=== PATIENT | male | born 1975 | race African-American/Black ===

== ENCOUNTER 2017-08-08 09:25 | Emergency (ER) | payer MEDICARE, MEDICAID ==
[~2017-08-08] VITALS: Ht 177.8 cm; Wt 70.0 kg
[~2017-08-08 09:25] MED LIST: DIVALPROEX; NAPROXEN; OLANZAPINE; QUETIAPINE; THIORIDAZINE
[2017-08-08 10:00] VITALS: BP 112/84
[2017-08-08] MEDS ORDERED: OXYMETAZOLINE HCL NASAL SPRAY 15ML BOTHNSTRLS SCH ×2 (10:30→21:00)
== END 2017-08-08 10:53 | disposition home or self-care (01) ==
LOC: ER 09:53
DX: R04.0 Epistaxis (principal); F20.9 Schizophrenia, unspecified
CPT/HCPCS: 99283

== ENCOUNTER 2019-07-30 14:40 | Inpatient (IN) | payer MEDICARE, MEDICAID ==
[~2019-07-30] VITALS: Ht 172.7 cm; Wt 82.6 kg
[2019-07-30] VITALS (21 sets, daily range): BP systolic 78–121; BP diastolic 45–69
[~2019-07-30 14:40] MED LIST changes: -DIVALPROEX; +DIVALPROEX MT; -NAPROXEN; +NAPROXEN MT; -OLANZAPINE; +OLANZAPINE MT; -QUETIAPINE; +QUETIAPINE MT
[2019-07-30] MEDS ORDERED: DEXTROSE 50% WATER 50ML SYRINGE IV ONE ×2 (14:51→15:00)
[2019-07-30] MEDS ORDERED: NALOXONE HCL 1 MG/ML 2ML VIAL ONE (14:54)
[2019-07-30] MEDS ORDERED: ETOMIDATE 2MG/ML 10ML VIAL IV ONE (15:00)
[2019-07-30] MEDS ORDERED: SODIUM CHLORIDE 0.9% 1000ML BAG (SEPSIS BOLUS) IV ONE (15:00)
[2019-07-30] MEDS ORDERED: NOREPINEPHRINE 4 MG in DEXT 5% WATER 246 ML IV ONE (15:00)
[2019-07-30] MEDS ORDERED: PIPERACILLIN/TAZ 3.375G PREMIX 50 ML IV ONE (15:00)
[2019-07-30] MEDS ORDERED: NALOXONE HCL 1 MG/ML 2ML VIAL IV ONE (15:00)
[2019-07-30] MEDS ORDERED: VANCOMYCIN 1 G PREMIX 200 ML IV ONE (15:00)
[2019-07-30] MEDS ORDERED: PROPOFOL 10MG/ML 100ML 100 ML IV ONE (15:00)
[2019-07-30] MEDS ORDERED: SUCCINYLCHOLINE CHLORIDE 200MG/10ML IV ONE (15:00)
[2019-07-30] MEDS ORDERED: NOREPINEPHRINE 4MG/250ML PMX 250 ML IV ONE (15:09)
[2019-07-30] MEDS ORDERED: LORAZEPAM 2MG/ML CPJ ONE (15:29)
[2019-07-30 15:38] LABS: CHLORIDE 111 mEq/L (98-107)
[2019-07-30 15:40] LABS: INR 1.8; PARTIAL THROMBOPLASTIN TIME 49.4 sec (23.4-31.0); PROTHROMBIN TIME 18.4 sec (9.6-11.0)
[2019-07-30 15:43] LABS: ETHANOL BLOOD < 10 mg/dL
[2019-07-30] MEDS ORDERED: LORAZEPAM 2MG/ML CPJ IV ONE (15:45)
[2019-07-30 15:48] LABS: HEMATOCRIT. 35.4 % (42.0-52.0); HEMOGLOBIN. 10.8 g/dL (14.0-18.0); MEAN CORPUSCULAR HEMOGLOBIN 26.1 pg (28.0-32.0); MEAN CORPUSCULAR VOLUME 85.8 fL (80.0-94.0); PLATELET 106 x1000/uL (130-400); RED BLOOD CELL COUNT 4.12 mill/uL (4.7-6.1); RED CELL DISTRIBUTION WIDTH 25.4 % (11.6-14.6)
[2019-07-30 15:51] LABS: BG BASE EXCESS -20.4 mmol/L (-2.0-2.0); BG CARBOXYHEMOGLOBIN 0.3 % (0.5-1.5); BG DEOXYHEMOGLOBIN 0.6 % (0.0-5.0); BG FRACTION INSPIRED OXYGEN 100; BG HCO3 ACT 9.1 mmol/L (22.0-26.0); BG OXYGEN SATURATION 99.4 % (92.0-98.5); BG OXYHEMOGLOBIN 98.1 % (94.0-97.0); BG PCO2 35.3 mmHg (35.0-45.0); BG PH 7.029 (7.350-7.450); BG PO2 463.8 mmHg (75.0-100.0); BG SAMPLE SITE RIGHT BRACHIAL; BG TIDAL VOLUME(mL) 500 mL; BG TOTAL HEMOGLOBIN 9.4 g/dL (12.0-18.0); BG VENT MODE VENT - A/C; BG VENT RATE 12 set
[2019-07-30] MEDS ORDERED: DOPAMINE 400MG/250ML PREMIX 250 ML IV ONE ×2 (16:00→18:00)
[2019-07-30 16:05] LABS: CLARITY URINE CLOUDY (CLEAR); COLOR URINE ORANGE (YELLOW); KETONES URINE NEGATIVE (NEGATIVE); LEUKOCYTE ESTERASE URINE 2+ (NEGATIVE); NITRITE URINE POSITIVE (NEGATIVE); OCCULT BLOOD URINE 1+ (NEGATIVE); PROTEIN URINE TRACE (NEGATIVE); SPECIFIC GRAVITY URINE 1.022 (1.005-1.030)
[2019-07-30] MEDS ORDERED: SODIUM POLYSTYRENE SULFONATE 15 G/60 ML BOT NG ONE (16:15)
[2019-07-30] MEDS ORDERED: ALBUTEROL (0.083%) 2.5MG/3ML NEB HHN ONE (16:15)
[2019-07-30] MEDS ORDERED: SODIUM BICARBONATE 8.4% 1 MEQ/ML 50ML SYR IV ONE (16:15)
[2019-07-30] MEDS ORDERED: LACTULOSE 20G/30ML UDC NG ONE (16:15)
[2019-07-30 16:27] LABS: *AMPHETAMINES SCREEN URINE NEGATIVE (NEGATIVE); *BARBITURATES SCREEN URINE NEGATIVE (NEGATIVE); *BENZODIAZEPINES SCREEN URINE NEGATIVE (NEGATIVE)
[2019-07-30 16:28] LABS: *COCAINE SCREEN URINE NEGATIVE (NEGATIVE); CANNABINOID URINE SCREEN NEGATIVE (NEGATIVE); METHADONE URINE SCREEN NEGATIVE (NEGATIVE); OPIATES URINE SCREEN NEGATIVE (NEGATIVE); PHENCYCLIDINE URINE SCREEN NEGATIVE (NEGATIVE)
[2019-07-30] MEDS ORDERED: NOREPINEPHRINE 4MG/250ML PMX 250 ML IV PRN (17:00)
[2019-07-30] MEDS ORDERED: SODIUM BICARBONATE 5MEQ SYR 150 MEQ in DEXTROSE 5% WATER 1,000 ML IV ONE (17:15)
[2019-07-30] MEDS ORDERED: SODIUM BICARBONATE 8.4% 1 MEQ/ML 50ML SYR IV NR ×2 (17:15→22:00)
[2019-07-30] MEDS ORDERED: DOBUTAMINE 250MG PREMIX 250 ML IV ONE (17:15)
[2019-07-30 17:17] LABS: PLATELET ESTIMATE DECREASED
[2019-07-30] MEDS ORDERED: DOBUTAMINE 250MG PREMIX 250 ML IV PRN (17:30)
[2019-07-30] MEDS: SODIUM BICARBONATE 150 MEQ in DEXTROSE 5% WATER 1,000 ML IV SCH (17:46)
[2019-07-30] MEDS ORDERED: MIDAZOLAM HCL 2 MG/2 ML VIAL IV ONE (18:00)
[2019-07-30] MEDS ORDERED: MIDAZOLAM HCL 50 MG in DEXTROSE 5% WATER 40 ML IV ONE (18:00)
[2019-07-30] MEDS ORDERED: ACETYLCYSTEINE 200MG/ML 20% VIAL 30ML (INJ) IV ONE ×2 (18:15→19:30)
[2019-07-30] MEDS ORDERED: PHENYLEPHRINE 40 MG in DEXT 5% WATER 246 ML IV PRN ×2 (19:15→19:30)
[2019-07-30] MEDS ORDERED: NOREPINEPHRINE 32 MG in DEXT 5% WATER 468 ML IV PRN (19:30)
[2019-07-30] MEDS ORDERED: ONDANSETRON HCL 4MG/2ML INJ IV PRN (19:30)
[2019-07-30] MEDS ORDERED: PIPERACILLIN/TAZ 3.375G PREMIX 50 ML IV SCH (19:30)
[2019-07-30] MEDS ORDERED: IPRATROPIUM/ALBUTEROL 0.5-3(2.5)MG/3ML NEB NEB PRN (19:30)
[2019-07-30] MEDS ORDERED: VANCOMYCIN 1 G PREMIX 200 ML IV SCH (19:30)
[2019-07-30] MEDS ORDERED: SODIUM BICARBONATE 150 MEQ in DEXTROSE 5% WATER 1,000 ML IV SCH (19:30)
[2019-07-30] MEDS ORDERED: ACETYLCYSTEINE IV NR (20:00)
[2019-07-30] MEDS ORDERED: DEXT 5% IV NR (20:00)
[2019-07-30] MEDS ORDERED: WATER IV NR (20:00)
[2019-07-30] MEDS ORDERED: PIPERACILLIN/TAZ 3.375G PREMIX 50 ML IV NR (20:00)
[2019-07-30] MEDS: NOREPINEPHRINE 32 MG in DEXT 5% WATER 468 ML IV PRN (20:20)
[2019-07-30] MEDS ORDERED: PROPOFOL 10MG/ML 100ML 100 ML IV PRN (20:45)
[2019-07-30] MEDS: IPRATROPIUM/ALBUTEROL 0.5-3(2.5)MG/3ML NEB HHN SCH (20:50)
[2019-07-30 21:36] LABS: BG BASE EXCESS -13.2 mmol/L (-2.0-2.0); BG CARBOXYHEMOGLOBIN 0.5 % (0.5-1.5); BG DEOXYHEMOGLOBIN 1.2 % (0.0-5.0); BG FRACTION INSPIRED OXYGEN 60; BG HCO3 ACT 13.6 mmol/L (22.0-26.0); BG METHEMOGLOBIN 0.3 % (0.0-1.5); BG OXYGEN SATURATION 98.8 % (92.0-98.5); BG PCO2 34.9 mmHg (35.0-45.0); BG PO2 189.4 mmHg (75.0-100.0); BG SAMPLE SITE RIGHT RADIAL; BG TIDAL VOLUME(mL) 500 mL; BG TOTAL HEMOGLOBIN 10.4 g/dL (12.0-18.0); BG VENT MODE VENT - A/C; BG VENT RATE 12 set
[2019-07-30] MEDS: CITRIC ACID/SODIUM CITRATE SOLN 30ML UDC NG SCH (21:37)
[2019-07-30] MEDS: FAMOTIDINE 20MG/2ML VIAL IV SCH (21:37)
[2019-07-30] MEDS ORDERED: VANCOMYCIN 1 G PREMIX 200 ML IV NR (22:00)
[2019-07-30] MEDS ORDERED: QUET200T29 MT (22:51)
[2019-07-30] MEDS: VASOPRESSIN 10 UNIT in SODIUM CHLORIDE 0.9% 99.5 ML IV PRN (23:45)
[2019-07-31] VITALS (69 sets, daily range): BP systolic 0–153; BP diastolic 0–110
[2019-07-31 00:13] LABS: CREATINE KINASE 1277 IU/L (39-308)
[2019-07-31] MEDS: PHENYLEPHRINE 80 MG in DEXT 5% WATER 492 ML IV PRN ×3 (00:16→15:58)
[2019-07-31] MEDS: PIPERACILLIN/TAZOBACTAM 2.25 G in DEXTROSE 5% WATER 50 ML IV SCH ×3 (01:12→15:54)
[2019-07-31] MEDS: IPRATROPIUM/ALBUTEROL 0.5-3(2.5)MG/3ML NEB HHN SCH ×3 (01:47→13:18)
[2019-07-31] MEDS ORDERED: FENTANYL CITRATE/PF 500 MCG in SODIUM CHLORIDE 0.9% 40 ML IV PRN (03:00)
[2019-07-31] MEDS: VASOPRESSIN 10 UNIT in SODIUM CHLORIDE 0.9% 99.5 ML IV PRN ×4 (03:19→15:57)
[2019-07-31] MEDS: SODIUM BICARBONATE 150 MEQ in DEXTROSE 5% WATER 1,000 ML IV SCH ×2 (04:19→13:31)
[2019-07-31 04:29] LABS: BG BASE EXCESS -3.2 mmol/L (-2.0-2.0); BG CARBOXYHEMOGLOBIN 0.3 % (0.5-1.5); BG DEOXYHEMOGLOBIN 0.9 % (0.0-5.0); BG FRACTION INSPIRED OXYGEN 100; BG HCO3 ACT 19.9 mmol/L (22.0-26.0); BG METHEMOGLOBIN 0.9 % (0.0-1.5); BG OXYGEN SATURATION 99.1 % (92.0-98.5); BG OXYHEMOGLOBIN 97.9 % (94.0-97.0); BG PCO2 29.5 mmHg (35.0-45.0); BG PH 7.447 (7.350-7.450); BG PO2 437.9 mmHg (75.0-100.0); BG SAMPLE SITE LEFT FEMORAL; BG TIDAL VOLUME(mL) 500 mL; BG TOTAL HEMOGLOBIN 11.5 g/dL (12.0-18.0); BG VENT MODE VENT - A/C; BG VENT RATE 16 set
[2019-07-31] MEDS ORDERED: ACETAMINOPHEN 650MG SUPP PR PRN (05:15)
[2019-07-31 06:19] LABS: CHLORIDE 101 mEq/L (98-107)
[2019-07-31 06:26] LABS: PHOSPHORUS 3.5 mg/dL (2.5-4.9)
[2019-07-31] MEDS: DOPAMINE 800MG PREMIX (DOUBLE) 250 ML IV PRN ×3 (07:49→14:18)
[2019-07-31] MEDS: FAMOTIDINE 20MG/2ML VIAL IV SCH (07:50)
[2019-07-31] MEDS: CITRIC ACID/SODIUM CITRATE SOLN 30ML UDC NG SCH (07:51)
[2019-07-31 08:40] LABS: HEMOGLOBIN. 11.1 g/dL (14.0-18.0); MEAN CORPUSCULAR HEMOGLOBIN 25.7 pg (28.0-32.0); MEAN CORPUSCULAR VOLUME 80.5 fL (80.0-94.0); MEAN PLATELET VOLUME 9.9 fl (7.4-10.4); PLATELET 55 x1000/uL (130-400); RED BLOOD CELL COUNT 4.34 mill/uL (4.7-6.1); RED CELL DISTRIBUTION WIDTH 25.6 % (11.6-14.6)
[2019-07-31 09:46] LABS: NUCLEATED RED BLOOD CELLS 7 /100 WBC
[2019-07-31 09:47] LABS: PLATELET ESTIMATE DECREASED
[2019-07-31 09:51] LABS: BG CARBOXYHEMOGLOBIN 0.3 % (0.5-1.5); BG DEOXYHEMOGLOBIN 8.3 % (0.0-5.0); BG FRACTION INSPIRED OXYGEN 40; BG HCO3 ACT 13.1 mmol/L (22.0-26.0); BG METHEMOGLOBIN 0.3 % (0.0-1.5); BG OXYGEN SATURATION 91.6 % (92.0-98.5); BG OXYHEMOGLOBIN 91.1 % (94.0-97.0); BG PCO2 30.6 mmHg (35.0-45.0); BG PH 7.248 (7.350-7.450); BG PO2 78.5 mmHg (75.0-100.0); BG SAMPLE SITE RIGHT BRACHIAL; BG TIDAL VOLUME(mL) 500 mL; BG TOTAL HEMOGLOBIN 9.7 g/dL (12.0-18.0); BG VENT MODE VENT - A/C; BG VENT RATE 16 set
[2019-07-31] MEDS ORDERED: OSELTAMIVIR 30MG CAPSULE PO SCH (10:00)
[2019-07-31] MEDS ORDERED: OSELTAMIVIR 75MG CAPSULE NG SCH (10:00)
[2019-07-31] MEDS ORDERED: SODIUM BICARBONATE 8.4% 1 MEQ/ML 50ML SYR IV SCH ×3 (10:15→15:45)
[2019-07-31] MEDS ORDERED: BISACODYL 10MG SUPP PR SCH (11:30)
[2019-07-31] MEDS: NOREPINEPHRINE 32 MG in DEXT 5% WATER 468 ML IV PRN (11:34)
[2019-07-31] MEDS ORDERED: FUROSEMIDE 40MG/4ML VIAL IVP SCH (12:15)
[2019-07-31 12:56] LABS: BG BASE EXCESS -12.6 mmol/L (-2.0-2.0); BG CARBOXYHEMOGLOBIN 0.5 % (0.5-1.5); BG FRACTION INSPIRED OXYGEN 40; BG HCO3 ACT 12.2 mmol/L (22.0-26.0); BG METHEMOGLOBIN 0.4 % (0.0-1.5); BG OXYHEMOGLOBIN 94.1 % (94.0-97.0); BG PCO2 25.2 mmHg (35.0-45.0); BG PH 7.303 (7.350-7.450); BG PO2 93.5 mmHg (75.0-100.0); BG SAMPLE SITE A-LINE; BG TIDAL VOLUME(mL) 500 mL; BG VENT MODE VENT - A/C; BG VENT RATE 20 set
[2019-07-31] MEDS ORDERED: NA PHOS,M-B/NA PHOS,DI-BA ENEMA 118ML PR PRN (13:52)
[2019-07-31] MEDS ORDERED: MAGNESIUM 1 G PREMIX 200 ML IV ONE (14:53)
[2019-07-31 15:07] LABS: BG BASE EXCESS -11.9 mmol/L (-2.0-2.0); BG CARBOXYHEMOGLOBIN 0.3 % (0.5-1.5); BG DEOXYHEMOGLOBIN 8.2 % (0.0-5.0); BG HCO3 ACT 13.8 mmol/L (22.0-26.0); BG METHEMOGLOBIN 1.8 % (0.0-1.5); BG OXYGEN SATURATION 91.6 % (92.0-98.5); BG OXYHEMOGLOBIN 89.7 % (94.0-97.0); BG PCO2 30.3 mmHg (35.0-45.0); BG PH 7.276 (7.350-7.450); BG PO2 80.3 mmHg (75.0-100.0); BG SAMPLE SITE A-LINE; BG TIDAL VOLUME(mL) 500 mL; BG TOTAL HEMOGLOBIN 8.3 g/dL (12.0-18.0); BG VENT MODE VENT - A/C; BG VENT RATE 20 set
[2019-07-31] MEDS ORDERED: SODIUM BICARBONATE 8.4% 1 MEQ/ML 50ML SYR IV ONE ×2 (15:35→17:11)
[2019-07-31 16:59] LABS: HEPATITIS B SURFACE ANTIGEN NEGATIVE
[2019-07-31 17:01] LABS: BG FRACTION INSPIRED OXYGEN 40
[2019-07-31 17:29] LABS: HEPATITIS A AB IGM NEGATIVE (NEGATIVE)
[2019-07-31] MEDS ORDERED: POLYVINYL ALCOHOL OPHTH DROPS 15ML BOTHEYE SCH (18:00)
[2019-07-31] MEDS ORDERED: PETROLATUM,WHITE OPHTH OINT 3.5GM BOTHEYE SCH (21:00)
== END 2019-07-31 17:14 | disposition expired | DRG 871 ==
LOC: ER 14:40 → CVICU 16:55 → EDBEDREQ 16:59 → ENRESERV 17:24
PROVIDERS: ADMIT Internal Medicine; ATTEND Internal Medicine
PROC: 5A1945Z Respiratory Ventilation, 24-96 Consecutive Hours (ICD-10-PCS; principal; 2019-07-30)
PROC: 0BH17EZ Insertion of Endotracheal Airway into Trachea, Via Natural or Artificial Opening (ICD-10-PCS; 2019-07-30)
PROC: 0D9670Z Drainage of Stomach with Drainage Device, Via Natural or Artificial Opening (ICD-10-PCS; 2019-07-31)
DX: A41.9 Sepsis, unspecified organism (principal); E43 Unspecified severe protein-calorie malnutrition; J18.9 Pneumonia, unspecified organism; J96.01 Acute respiratory failure with hypoxia; R65.21 Severe sepsis with septic shock; K56.7 Ileus, unspecified; M62.82 Rhabdomyolysis; N17.9 Acute kidney failure, unspecified; N39.0 Urinary tract infection, site not specified; K56.609 Unspecified intestinal obstruction, unspecified as to partial versus complete obstruction; D64.9 Anemia, unspecified; R73.9 Hyperglycemia, unspecified; D69.6 Thrombocytopenia, unspecified; E87.5 Hyperkalemia; F20.9 Schizophrenia, unspecified; I11.9 Hypertensive heart disease without heart failure; Z78.1 Physical restraint status; Z82.49 Family history of ischemic heart disease and other diseases of the circulatory system; Z86.73 Personal history of transient ischemic attack (TIA), and cerebral infarction without residual deficits; Z91.19 Patient's noncompliance with other medical treatment and regimen; Z93.0 Tracheostomy status; Z68.27 Body mass index [BMI] 27.0-27.9, adult
CPT/HCPCS: 36415; 36600; 71045; 74018; 76770; 80165; 80202; 80305; 80307; 80320; 80329; 81003; 82010; 82140; 82375; 82550; 82805; 82962; 83605; 83735; 83880; 84100; 84145; 84478; 84484; 86705; 86709; 86803; 86850; 86900; 87070; 87340; 93005; 94002; 94640; 94644; 99291; J0132; J1250; J1265; J1940; J2060; J2250; J2310; J2370; J2543; J2704; J3370; J3475; J3490; J7030; J7050; J7060; J7070; J7611; J7620; A4315; G0480